=== PATIENT | male | born 1970 | race Caucasian/White ===

== ENCOUNTER 2021-08-01 11:58 | Day surgery (SDC) | payer MEDICAID ==
[2021-07-30 12:37] LABS: COVID AG,FIA SOURCE NASOPHARYNGEAL
[~2021-08-01] VITALS: Ht 170.2 cm; Wt 56.3 kg
[~2021-08-01 11:58] MED LIST: SODIUM CHLORIDE 0.9% 1,000 ML ONE
[2021-08-01] MEDS ORDERED: PROPOFOL 1% 20 ML VIAL IVP ONE (11:59)
[2021-08-01] MEDS ORDERED: SODIUM CHLORIDE 0.9% 1,000 ML IV ONE (12:00)
[2021-08-01] MEDS ORDERED: SOLI5 PO (12:44)
[2021-08-01] MEDS ORDERED: DARU1TAB PO (12:44)
[2021-08-01] MEDS ORDERED: ATOR20TA86 PO (12:44)
[2021-08-01] MEDS ORDERED: BECL10.6 IH (12:44)
[2021-08-01] MEDS ORDERED: BICT1TAB PO (12:44)
[2021-08-01] MEDS ORDERED: HYDR200T38 PO (12:44)
[2021-08-01] MEDS ORDERED: ALEN70TA65 PO (12:44)
== END 2021-08-01 14:25 | disposition home or self-care (01) ==
LOC: SURGERY 11:58
PROVIDERS: ATTEND Internal Medicine Gastroenterology
DX: K22.2 Esophageal obstruction (principal); K44.9 Diaphragmatic hernia without obstruction or gangrene; K21.00 Gastro-esophageal reflux disease with esophagitis, without bleeding; M19.90 Unspecified osteoarthritis, unspecified site; E66.3 Overweight; B20 Human immunodeficiency virus [HIV] disease; E78.5 Hyperlipidemia, unspecified; M81.8 Other osteoporosis without current pathological fracture; M06.9 Rheumatoid arthritis, unspecified; Z79.899 Other long term (current) drug therapy; Z98.890 Other specified postprocedural states; Z85.21 Personal history of malignant neoplasm of larynx
CPT/HCPCS: 43239; 87426; 88305; 88312; C1769; C9803; J2704; J7030